=== PATIENT | female | born 1945 | race Caucasian/White ===

== ENCOUNTER 2017-02-15 03:24 | Observation (INO) | payer OTHER ==
--- NOTE | ~2017-02-15 | DS ---
Discharge Summary [facility] [address] [place]. [address] NAME: WELLINGTON CASTILLO : 49 STATUS : DIS Mabel PAT#: [id number] AGE: 71 ADM/REG DATE : 02/15/17 MR#: [id number] REPORT SERV DATE: 02/17/17 DICTATED BY: DALE ISABEL DATE: 02/16/17 REPORT STATUS : Draft TRANSCRIBED BY: MODL DATE: 02/16/17 ADMISSION DATE: 02/15/2017 DISCHARGE DATE: 02/16/2017 PRINCIPAL DIAGNOSIS: Normal pressure hydrocephalus. SECONDARY DIAGNOSES: 1. Type 2 diabetes. 2. Intractable headache. 3. Ataxia. 4. Weight loss. 5. Depression. HISTORY OF PRESENT ILLNESS: Please see Dr. Medina's dictation on 02/15/2017. HOSPITAL COURSE: Admitted with weight loss, headache, confusion, and gait difficulties. CT was suggestive of hydrocephalus with very significant ventriculomegaly relative to sulci size; however, MRI showed some fairly consistent dilatation of CSF spaces more compatible with atrophy than hydrocephalus. The patient however actually felt better the following day, she was eating well, able to ambulate. She had been on Plavix for a history of prior stroke greater than one year ago, this and aspirin were discontinued with anticipation of a lumbar puncture next week and then follow up in Neurosurgery afterwards based on the results. There was no point in keeping her in the hospital during that time, so she was released in satisfactory condition with followup appointment with Shiraz Lugo and Herman Raymond pShamirrjayla. Medicines were unchanged. HOMA/DANA Dale Isabel M.D. / [id number] CC: Nelson Kamara M.D. [facility]
--- NOTE | ~2017-02-15 | CN ---
Consultation Report [facility] [address] [place]. [address] NAME: WELLINGTON CASTILLO : 49 STATUS : ADM Mabel PAT#: [id number] AGE: 71 ADM/REG DATE : 02/15/17 MR#: [id number] REPORT SERV DATE: 02/15/17 DICTATED BY: ANDREW OLGUIN DATE: 02/15/17 REPORT STATUS : Draft TRANSCRIBED BY: MODL DATE: 02/15/17 PSYCHIATRIC CONSULTATION DATE OF CONSULTATION: 02/15/2017 I reviewed this patient's current and old medical records. I discussed her status with Dr. Medina, who admitted her during the night and was concerned about vortioxetine possibly causing weight loss. I discussed the patient's status with her daughter, who was at the bedside. HISTORY OF PRESENT ILLNESS: She was admitted with ataxia, falls, encephalopathy, and headache. PAST PSYCHIATRIC HISTORY: She was previously seen in consultation on 01/14/2016, when she was admitted with similar symptoms. She has had recurring bouts of depression and chronic anxiety for most of her adult life. For many years, she took Prozac at a dose up to 80 mg daily, without benefit. About 5 months ago, her PCP gave her samples of Trintellix, which is a brand name for vortioxetine. She is taking just 5 mg daily. She has felt much better since starting on that medication. She said "it got me out of bed." She has lost some weight, which is not a problem for her. SOCIAL HISTORY: Her daughter lives with her. She is . She lost her son about one year ago. FAMILY HISTORY: Bipolar disorder in her son and a daughter. MENTAL STATUS: She was cooperative in attitude. Her mood was euthymic or perhaps mildly dysphoric. Her affect was appropriate. Her thinking was logical. She had no delusions. She had no hallucinations. She was oriented to time, place, and person. DIAGNOSIS: Major depressive disorder, recurrent. RECOMMENDATIONS: Her mood is currently stable. She should continue on vortioxetine 5 mg p.o. daily. I will sign off. HUGO/DANA Andrew Olguin M.D. / [id number] CC: Consultation Report [facility] [id number] [place]. [address] NAME: WELLINGTON CASTILLO : 49 STATUS : ADM Mabel PAT#: [id number] AGE: 71 ADM/REG DATE : 02/15/17 MR#: [id number] REPORT SERV DATE: 02/15/17 DICTATED BY: ANDREW OLGUIN DATE: 02/15/17 REPORT STATUS : Draft TRANSCRIBED BY: MODL DATE: 02/15/17 Nelson Kamara M.D.
--- NOTE | ~2017-02-15 | HP ---
History And Physical [facility] [address] [facility] [place]. [address] NAME: WELLINGTON CASTILLO : 49 STATUS : ADM Mabel PAT#: [id number] AGE: 71 ADM/REG DATE : 02/15/17 MR#: [id number] REPORT SERV DATE: 02/15/17 DICTATED BY: KRISTI RUIZ DATE: 02/15/17 REPORT STATUS : Draft TRANSCRIBED BY: MODL DATE: 02/15/17 DATE OF ADMISSION: 02/15/2017 CHIEF COMPLAINT: This is a 71-year-old female presenting with gait disturbance, falls, confusion, urinary incontinence. HISTORY OF PRESENT ILLNESS: The patient's history was obtained through the interview with the patient and daughter coupled with review [facility]. The patient has a history that seems consistent with normal pressure hydrocephalus. She has had previous problems with ataxia, confusion and had an evaluation for a shunt placement. She apparently had cerebrospinal fluid removed, but she was told that she did not have a significant degree of cerebral spinal fluid, have a permanent stent placed, but after she had this procedure, over the next few weeks, she had complete resolution of the initial ataxia and confusion that seems to show consistency with an underlying diagnosis of normal pressure hydrocephalus. But over the last six weeks, the patient has had increasing recurrence of these symptoms. Her ataxia is so severe that she has had multiple falls, fortunately has not suffered any closed head injuries though, but now walks around "like I am drunk". She has also had increasing confusion sometimes becoming incoherent. She has had new symptoms of urinary incontinence, but no bowel problems. She describes a headache, it is mostly centered around her right rastafari that goes to the back of her head and to her neck, it is an aching quality, up to a 10/10 severity that is present most every day. She has had diabetes, but it has been under good control. She describes dizziness at times, but no lightheadedness. She has lost about 30 or 40 pounds just over the last three months. She and her daughter attributes this to starting an antidepressant medication, vortioxetine. She has noticed no nausea or vomiting and no loss of appetite. REVIEW OF SYSTEMS: Otherwise, a 14-point review of systems was obtained and was negative. PAST MEDICAL HISTORY: 1. Normal pressure hydrocephalus. Improved with cerebral spinal fluid removal. 2. Diabetes. 3. Congestive heart failure. 4. Stroke by MRI. 5. Hypertension. 6. Coronary artery disease. History And Physical [address] [address] NAME: WELLINGTON CASTILLO : 49 STATUS : ADM Mabel PAT#: [id number] AGE: 71 ADM/REG DATE : 02/15/17 MR#: [id number] REPORT SERV DATE: 02/15/17 DICTATED BY: KRISTI RUIZ DATE: 02/15/17 REPORT STATUS : Draft TRANSCRIBED BY: DANA DATE: 02/15/17 7. Dementia. 8. Irritable bowel syndrome. 9. Depression which seems to have resolved with the initiation of vortioxetine. 10.Vitamin D deficiency. 11.Dyslipidemia. PAST SURGICAL HISTORY: 1. Right wrist surgery. 2. Appendectomy. 3. Neck abscess, incision and drainage. ALLERGIES: NO KNOWN DRUG ALLERGIES. SOCIAL HISTORY: She has been a for 2-/2 years. Her son suddenly from a heart attack a year ago. 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 She lives in [place], [place], with her daughter living nearby. The patient smokes cigarettes, but does not drink alcohol. FAMILY HISTORY: Mother at 68 years of age with a stroke. Father at 64 years of age of a myocardial infarction. Two brothers with coronary artery disease. Had a son one year ago at 40 years of age of a heart attack with strong family history of diabetes as well. CURRENT MEDICATIONS: Unknown at this time, other than the fact that she takes vortioxetine. We have requested the Pharmacy to compile all medication list for us. PHYSICAL EXAMINATION: VITAL SIGNS: Temperature 98.2, pulse 78, blood pressure 107/63, respiratory rate 18, and O2 saturation 96% on room air. GENERAL: A pleasant, cooperative female, no evidence of distress. NEUROLOGIC: Cranial nerves II through XII are intact and symmetrical. The patient has 5/5 strength in upper and lower extremities that is symmetrical. When she attempts to ambulate she obviously is overtly ataxic and has a "positive" Romberg. HEENT: Pupils equal, round, and reactive to light. No conjunctival pallor. No scleral icterus. Nares are patent. Oropharynx is clear of obstruction. Moist mucous membranes. NECK: Trachea midline. No thyromegaly. LYMPH: No cervical lymphadenopathy. No supraclavicular lymphadenopathy. RESPIRATORY: Clear to auscultation at bases. No wheezes, rales, or rhonchi. Normal respiratory effort. CARDIOVASCULAR: Regular rate and rhythm. No murmurs, rubs, or gallops. No extremity edema is appreciated. ABDOMEN: Soft, nontender, nondistended. Normal bowel sounds auscultated throughout no hepatosplenomegaly. DERMATOLOGICAL: Warm and dry extremities pallor no cyanosis psychiatric normal affect. Good mood. Alert and oriented x3 currently. LABORATORY DATA: White blood count 8.9, hemoglobin 13, hematocrit 40, platelets 271 sodium History And Physical [address] [address] NAME: WELLINGTON CASTILLO : 49 STATUS : ADM Mabel PAT#: [id number] AGE: 71 ADM/REG DATE : 02/15/17 MR#: [id number] REPORT SERV DATE: 02/15/17 DICTATED BY: KRISTI RUIZ DATE: 02/15/17 REPORT STATUS : Draft TRANSCRIBED BY: DANA DATE: 02/15/17 138, potassium 3.9, chloride 100, bicarb 29, BUN 14, creatinine 0.87, glucose 139. Liver enzymes within normal limits urine. STUDIES: 1. Chest x-ray by my own evaluation shows no acute cardiopulmonary process. 2. EKG by my own evaluation shows sinus rhythm. 3. X-ray of the knees is "negative". 4. CT scan of the brain without contrast shows no acute intracranial process as reported by the emergency room physician. ASSESSMENT AND PLAN: 1. Ataxia, encephalopathy, falls. This history seems consistent with recurrent normal pressure hydrocephalus. Question the need for therapeutic and diagnostic lumbar puncture versus a re-evaluation for shunt placement(?). Obtain Neurology consult. Check ammonia level as there is a history of a being elevated in the past. 2. Severe headache in the right rastafari primarily. Check an ESR to rule out temporal arteritis (?). 3. Diabetes sliding scale insulin. 4. Weight loss. The family states that it seems to correlate with starting vortioxetine for depression. I would like to ask Dr. Estrella, psychiatrist, to weigh in as to whether this seems reasonable or if we should look for another cause of the patient's weight loss as it relates to depression, but currently the patient states that she is not depressed and seems to have recovered well despite the tragedy in her life. KPL/MODL Kristi Ruiz M.D. / [id number] CC: Nelson Kamara M.D. Suzanne Storey, M.D.
--- NOTE | ~2017-02-15 | CN ---
Consultation Report [facility] [address] [place]. [address] NAME: WELLINGTON CASTILLO : 49 STATUS : ADM Mabel PAT#: [id number] AGE: 71 ADM/REG DATE : 02/15/17 MR#: [id number] REPORT SERV DATE: 02/15/17 DICTATED BY: GERTRUDE HUNTER DATE: 02/15/17 REPORT STATUS : Draft TRANSCRIBED BY: MODL DATE: 02/15/17 NEUROLOGY CONSULTATION DATE OF CONSULTATION: 02/15/2017 REASON FOR CONSULTATION: Ataxia, acute encephalopathy, and history of NPH. PCP: Herman Raymond M.D. HOSPITALIST: Dr. Randall Thornton. HISTORY OF PRESENT ILLNESS: The patient is a 71-year-old female, who has a history of NPH. In fact, she had a high volume LP last year which seemed to relieve her symptoms of short- term memory loss, ataxia, and urinary incontinence. However over the last 6-to-8 weeks, the patient mentions that her symptoms have seemed to return. She has had difficulty with balance. In fact she fell down in front of [employer] yesterday and injured her knees badly. She also has had a return of urinary incontinence and has to wear pads now. She mentions that after her first lumbar puncture, her urinary issues cleared up. She also mentions that she has difficulty with short-term memory. She can never remember where she places her keys or her cell phone. The patient would like to be evaluated for shunt placement or permanent relief of her hydrocephalus. She also mentions that her mother had the same problem and ended up having a shunt placed. PAST MEDICAL HISTORY: Coronary artery disease, hypertension, dyslipidemia, fibromyalgia, diabetes mellitus type 2, chronic back pain, normal-pressure hydrocephalus, and tobacco abuse. PAST SURGICAL HISTORY: Appendectomy and hand surgery. HOME MEDICATION LIST: Includes 1. Aspirin 81 mg daily. 2. Lipitor 40 mg at bedtime. 3. Zyrtec 10 mg daily. 4. Plavix 75 mg daily. 5. Bentyl 20 mg t.i.d. p.r.n. 6. Metformin 500 mg a.c. and at bedtime. 7. Centrum 1 tablet daily. 8. Nitroglycerin 0.4 mg p.r.n. 9. Brintellix 5 mg daily. ALLERGIES: NONE. Consultation Report [facility] [address] [place]. [address] NAME: WELLINGTON CASTILLO : 49 STATUS : ADM Mabel PAT#: [id number] AGE: 71 ADM/REG DATE : 02/15/17 MR#: [id number] REPORT SERV DATE: 02/15/17 DICTATED BY: GERTRUDE HUNTER DATE: 02/15/17 REPORT STATUS : Draft TRANSCRIBED BY: DANA DATE: 02/15/17 SOCIAL HISTORY: The patient is a . Her daughter lives with her. She is retired. She is a smoker. Does not drink alcohol or use illicits. FAMILY HISTORY: The patient's mother at the age of 68 from a stroke and resultant pneumonia. Her father at the age of 64 from an [place]. REVIEW OF SYSTEMS: Please refer to HPI for pertinent positives. PHYSICAL EXAMINATION: GENERAL: The patient is a 71-year-old female, who stands 5 feet 4 inches tall and weighs 174 pounds. VITAL SIGNS: She is afebrile. Heart rate 92, respiratory rate 20, O2 saturations on room air 94%, and blood pressure 138/64. NEUROLOGIC: The patient is alert. She is oriented x4. She is cooperative. Speech is clear. Language is fluent. Pupils 3 mm, they are reactive. EOMs are intact. Vision via confrontation is full in both baca. She does report slightly diminished sensation on the left side of her face when compared to the right. There is no facial droop. Tongue is midline. Uvula rises. There is no ataxia with [id number]. No pronator drift. Upper extremity strength is 5/5 bilaterally. No reported sensory deficits in the upper extremities. DTRs are 2+ bilaterally. Lower extremity strength is a 5/5 on the left and a 2/5 on the right (weakness is most likely due to pain from recent fall). The patient can get in and out of the bed with some assistance. She ambulates with her walker. She has a magnetic shuffling type gait, it is non-wide based. She is unable to tandem and Romberg is untestable at this time. LABORATORY DATA: CBC is normal. BMP normal except the glucose is 139. CT of the brain, atrophy ventriculomegaly, bilateral basal ganglia lacunar infarcts, and also infarcts in the caudate nucleus, they are all chronic. There are no acute changes. 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 ASSESSMENT/PLAN: NPH. The patient will again undergo an MRI of the brain without gadolinium. She will also have a CTA of the head and neck due to the abnormality shown last year on her MRI of the head and neck. At this point, her Plavix will be held x5 days so she can have a high volume LP. An appointment will be scheduled for shunt placement with neurosurgical associates. Thank you again for including us in consultation. We will follow with you. RYLEE/DANA Gertrude Hunter DNP, [facility]- Consultation Report [address] [address] NAME: WELLINGTON CASTILLO : 49 STATUS : ADM Mabel PAT#: [id number] AGE: 71 ADM/REG DATE : 02/15/17 MR#: [id number] REPORT SERV DATE: 02/15/17 DICTATED BY: GERTRUDE HUNTER DATE: 02/15/17 REPORT STATUS : Draft TRANSCRIBED BY: DANA DATE: 02/15/17 / [id number] CC: Nelson Kamara M.D.
[~2017-02-15 03:24] MED LIST: ASA5GR PO; ASAB PO; BENTYL20 PO; CHANTIX0.5; FLONASE NAS; GLUCPH PO; HALF81 PO; HYZAAR 50/12.51 TAB PO; LIPITOR20 PO; LIPITOR40 PO; MULTIVIT/MIN PO; NEUR600 PO; NITROSTAT0.4 MG SL; NORCO1 TAB PO; PENICILLIN PO; PLAVIX PO; PROZAC40 MG PO; THERGRANM PO; XANAX1 MG PO; ZYRTEC ALLGY10 MG PO
[2017-02-15 04:13] LABS: BASOPHILS 0.3 %; BASOPHILS ABSOLUTE 0.03 10/3/uL (0.0-0.16); EOSINOPHILS 0.9 %; EOSINOPHILS ABSOLUTE 0.08 10/3/uL (0.0-0.53); ER CBC TAT 0 Hrs 12 Mins; HEMATOCRIT 39.7 % (36.0-48.0); HEMOGLOBIN 12.7 g/dL (12.0-16.0); IMMATURE GRANULOCYTES 0.2 %; IMMATURE GRANULOCYTES ABSOLUTE 0.02 10/3/uL (0.0-0.11); LYMPHOCYTES 21.1 %; LYMPHOCYTES ABSOLUTE 1.88 10/3/uL (0.67-4.30); MANUAL DIFF NO %; MEAN CORPUSCULAR HEMOGLOB 29.5 pg (26.0-34.0); MEAN CORPUSCULAR VOLUME 92.1 fL (80-100); MEAN PLATELET VOLUME 9.1 fL (9.2-13.0); MONOCYTES ABSOLUTE 0.62 10/3/uL (0.21-1.20); NEUTROPHILS 70.5 %; NEUTROPHILS ABSOLUTE 6.26 10/3/uL (2.02-8.40); PLATELET COUNT 271 10/3/uL (150-400); RBC DISTRIBUTION WIDTH 14.4 % (12.0-16.0); RED CELL COUNT 4.31 10/6/uL (4.0-5.6); WHITE BLOOD CELLS 8.9 10/3/uL (4.5-10.5)
[2017-02-15 04:34] LABS: A/G RATIO 1.1 (0.7-1.9); ALBUMIN 3.8 G/DL (3.5-5.0); CALCIUM, SERUM 8.7 MG/DL (8.5-10.4); CHLORIDE, SERUM 100 MMOL/L (96-112); CO2 (CARBON DIOXIDE) 29 MMOL/L (24-34); CREATININE 0.87 MG/DL (0.55-1.02); GFR AFRICAN AMERICAN 79 ML/MIN (>=60); GFR NON AFRICAN AMERICAN 68 ML/MIN (>=60); GLOBULIN 3.5 G/DL (2.5-4.1); POTASSIUM, SERUM 3.9 MMOL/L (3.5-5.3); SGOT(AST) 16 U/L (5-40); SGPT(ALT) 23 U/L (5-65); SODIUM, SERUM 138 MMOL/L (135-148); TOTAL BILIRUBIN 0.3 MG/DL (0-1.2); TOTAL PROTEIN 7.3 G/DL (6.0-8.5)
[2017-02-15 04:38] LABS: ALKALINE PHOSPHATASE 94 U/L (45-117); BUN (BLOOD UREA NITROGEN) 14 MG/DL (6-23); GLUCOSE, SERUM 139 MG/DL (60-99)
[2017-02-15] MEDS ORDERED: LIPITOR40 (06:19)
[2017-02-15] MEDS ORDERED: ZYRTEC ALLGY10 MG PO ×2 (06:19→12:46)
[2017-02-15] MEDS ORDERED: ASAB PO ×2 (06:19→13:23)
[2017-02-15] MEDS ORDERED: PLAVIX PO ×2 (06:20→12:46)
[2017-02-15] MEDS ORDERED: BENTYL20 PO (06:21)
[2017-02-15] MEDS ORDERED: GLUCPH PO ×2 (06:22→12:47)
[2017-02-15] MEDS ORDERED: CENTRUM PO ×2 (06:22→12:48)
[2017-02-15] MEDS ORDERED: NITROQUICK0.4 MG SL (06:23)
[2017-02-15] MEDS ORDERED: [UNRECOGNIZED DRUG - CODE] PO ×2 (06:25→12:50)
[2017-02-15 08:08] LABS: ASCORBIC ACID (UR NOT ORDER) NEG (NEG); BILIRUBIN, URINE NEGATIVE (NEG); ER URINALYSIS TAT 0 Hrs 00 Mins; KETONE, URINE NEGATIVE (NEG); LEUKOCYTE ESTERASE(NOT OR NEG (NEG); NITRITE (URINE) NEG (NEG); WBC (NOT ORDERED) (RFLEX) 2 (0-5)
[2017-02-15] MEDS ORDERED: XANAX1 MG (12:45)
[2017-02-15] MEDS ORDERED: LIPITOR40 PO (12:46)
[2017-02-15] MEDS ORDERED: BENTYL10 PO (12:47)
[2017-02-15] MEDS ORDERED: NITROSTAT0.4 MG SL (12:48)
[2017-02-15] MEDS ORDERED: NORCO1 TAB PO (12:48)
[2017-02-15] MEDS ORDERED: HYZAAR 50/12.51 TAB PO (12:49)
[2017-02-15] MEDS ORDERED: TOPAMAX25 PO (12:49)
[2017-02-15] MEDS ORDERED: OTC PAIN CREAM TOP (12:49)
[2017-02-15] MEDS ORDERED: PROZAC40 MG (12:50)
[2017-02-15 13:33] LABS: A/G RATIO 0.9 (0.7-1.9); ALBUMIN 3.6 G/DL (3.5-5.0); ALKALINE PHOSPHATASE 95 U/L (45-117); BUN (BLOOD UREA NITROGEN) 15 MG/DL (6-23); CHLORIDE, SERUM 103 MMOL/L (96-112); CO2 (CARBON DIOXIDE) 32 MMOL/L (24-34); CREATININE 0.78 MG/DL (0.55-1.02); GFR AFRICAN AMERICAN 90 ML/MIN (>=60); GFR NON AFRICAN AMERICAN 78 ML/MIN (>=60); GLOBULIN 3.8 G/DL (2.5-4.1); GLUCOSE, SERUM 133 MG/DL (60-99); POTASSIUM, SERUM 3.6 MMOL/L (3.5-5.3); SGOT(AST) 15 U/L (5-40); SGPT(ALT) 22 U/L (5-65); SODIUM, SERUM 141 MMOL/L (135-148); TOTAL BILIRUBIN 0.4 MG/DL (0-1.2); TOTAL PROTEIN 7.4 G/DL (6.0-8.5)
[2017-02-15 17:58] LABS: CHOL/HDL RATIO(NOT ORDER) 3.6 (0-5); FOLATE 19.5 NG/ML (>5.2)
[2017-02-16] MEDS ORDERED: PLAVIX PO (17:03)
[2017-02-16] MEDS ORDERED: CLARIT10 PO (17:06)
== END 2017-02-16 19:21 | disposition home or self-care (01) ==
LOC: ER 03:24 → 1SO 06:04
PROVIDERS: Hospitalist; Nurse Practitioner; Specialist
DX: G91.2 (Idiopathic) normal pressure hydrocephalus (principal); E11.9 Type 2 diabetes mellitus without complications; R27.0 Ataxia, unspecified; R63.4 Abnormal weight loss; F32.9 Major depressive disorder, single episode, unspecified; R51 Headache; I11.0 Hypertensive heart disease with heart failure; I50.9 Heart failure, unspecified; I25.10 Atherosclerotic heart disease of native coronary artery without angina pectoris; F03.90 Unspecified dementia, unspecified severity, without behavioral disturbance, psychotic disturbance, mood disturbance, and anxiety; E78.5 Hyperlipidemia, unspecified; Z86.73 Personal history of transient ischemic attack (TIA), and cerebral infarction without residual deficits; Z90.49 Acquired absence of other specified parts of digestive tract; Z98.890 Other specified postprocedural states; Z79.82 Long term (current) use of aspirin; Z79.899 Other long term (current) drug therapy
CPT/HCPCS: 70450; 70496; 70498; 70551; 73560-LT; 73560-RT; 80053; 80061; 81001; 82140; 82306; 82607; 82746; 82962; 83036; 83735; 84443; 85025; 85652; 93005; 97161-GP; 97165-GO; 99285; A9270-GY; G0378; Q9967